=== PATIENT | female | born 1950 ===

== ENCOUNTER 2016-12-26 04:51 | Emergency (ER) | payer SELFPAY ==
--- NOTE | 2016-12-27 13:59 | CARD ---
APPROVED REPORT EKG Measurement Heart [id number] <Conclusion> Normal sinus rhythm with sinus arrhythmia Minimal voltage criteria for LVH, may be normal variant Borderline ECG
== END 2016-12-26 06:30 | disposition home or self-care (01) ==
LOC: H.EDERROR 04:51 → H.ER 04:51 → H.EDERROR 06:30
DX: H10.9 Unspecified conjunctivitis (principal); J02.9 Acute pharyngitis, unspecified